=== PATIENT | male | born 1940 | race Caucasian/White ===

== ENCOUNTER 2019-11-26 14:02 | Inpatient (IN) | payer MEDICARE ==
[2019-11-26] MEDS ORDERED: Albuterol Sulfate 2.5 mg/0.5 ml Neb ONE ×2 (14:22→14:38)
[2019-11-26] MEDS ORDERED: Albuterol Sulfate 2.5 mg/3 ml Neb ONE (14:22)
[2019-11-26 14:30] LABS: #Monocytes 0.6 thou/uL (0.11-0.59); #Neutrophils 13.3 thou/uL (1.40-6.50); %Eosinophils 0.3 % (0.0-10.0); %Neutrophils 88.8 % (42.0-75.0); Hemoglobin 14.6 g/dL (14.0-18.0); Mean Corpuscular HGB CONC 33.1 g/dL (32.0-36.0); Mean Corpuscular Hemoglobin 32.6 pg (27.0-31.0); Mean Corpuscular Volume 98.4 fL (78.0-98.0); Mean Platelet Volume 8.3 fL (7.4-10.4); Platelet Count 327 thou/uL (130-400); RBC Distribution Width 13.8 % (11.5-14.5); Red Blood Cell (RBC) Count 4.49 mill/uL (4.70-6.10); White Blood Cell (WBC) Count 14.9 thou/uL (4.8-10.8)
[2019-11-26] MEDS ORDERED: Magnesium 2 GM/50 ML BAG (IN WATER) ONE (14:31)
[2019-11-26] MEDS ORDERED: Azithromycin 500 MG VIAL ONE ×2 (14:31→15:24)
[2019-11-26] MEDS ORDERED: cefTRIAXone\\ROCEPHIN 2 GM VIAL ONE (14:31)
[2019-11-26] MEDS ORDERED: methylPREDNISolone Sod Succ/PF 125 MG/2 ML VIAL ONE (14:31)
[2019-11-26 14:34] LABS: Actual Bicarbonate (HCO3a) 25.5 mEq/L (22-28); Analyzer IN Cardio ER; Base Excess (BEa) 1.3 mEq/L (-2.0 to +3.0); CO2 Tension 39.1 mmHg (35.0-45.0); Carboxyhemoglobin (COHb) 0.2 gm% (0.0-3.0); Potassium - ABG Lab 3.58 mmol/L (3.70-5.30); pH, Arterial 7.43 (7.35-7.45)
[2019-11-26 14:42] LABS: ALV-art Gradient 178.025 (0-20); O2 Tension (PaO2) 58.3 mmHg (> 60.0); Puncture Site RRA
[2019-11-26 14:48] LABS: ALT (SGPT) 21 U/L (8-55); AST (SGOT) 19 U/L (5-34); Albumin 3.7 g/dL (3.4-4.8); Alkaline Phosphatase 87 U/L (40-110); Anion Gap 13 mmol/L (10-20); BUN (Urea Nitrogen) 21 mg/dL (8.4-25.7); Bilirubin, Total 0.5 mg/dL (0.2-1.2); Calc. Creatinine Clearance 0 mL/min (70-130); Carbon Dioxide 29 mmol/L (23-31); Chloride 98 mmol/L (98-107); Estimated GFR-MDRD 69; Globulin 3.4 g/dL (2.4-3.5); Glucose 167 mg/dL (83-110); Potassium 3.8 mmol/L (3.5-5.1); Protein, Total 7.1 g/dL (5.8-8.1); Sodium 136 mmol/L (136-145)
--- NOTE | 2019-11-26 15:06 | RAD ---
XR Chest 1 View Portable HISTORY: Shortness of breath COMPARISON: None FINDINGS: The heart size is normal. The aorta is tortuous. The lungs are well expanded without focal areas of consolidation, pneumothorax or pleural effusions. IMPRESSION: No radiographic evidence of acute cardiopulmonary process.
[2019-11-26 18:01] LABS: Lactic Acid 1.8 mmol/L (0.5-2.2)
[2019-11-26 18:17] LABS: Troponin I 0.013 ng/mL (< 0.028)
[2019-11-26] MEDS ORDERED: Ondansetron PF 4 MG/2 ML Vial IVP PRN ×2 (18:48→22:30)
[2019-11-26] MEDS ORDERED: Ondansetron ODT 4 MG TAB SL PRN (18:48)
[2019-11-26] MEDS ORDERED: Acetaminophen 325 MG TAB PO PRN ×2 (18:48→22:30)
[2019-11-26 21:11] LABS: Troponin I 0.015 ng/mL (< 0.028)
[2019-11-26 21:40] VITALS: BMI 22.4
[2019-11-26] MEDS ORDERED: Senokot S 8.6-50 MG TAB PO PRN (22:30)
[2019-11-26] MEDS ORDERED: Calcium Carbonate 500 MG ChewTAB PO PRN (22:30)
[2019-11-26] MEDS ORDERED: Ondansetron ODT 4 MG TAB PO PRN (22:30)
[2019-11-26] MEDS ORDERED: Diabetic Tussin 200 MG/10 ML UDCUP PO PRN (22:32)
[2019-11-26] MEDS ORDERED: Cepastat Lozenges 1 LOZ PO PRN (22:32)
[2019-11-26] MEDS ORDERED: hydrALAZINE 20 MG/ML VIAL SLOW IVP PRN (22:32)
--- NOTE | 2019-11-26 23:09 | HP ---
PRIMARY CARE PHYSICIAN: Dr. Ariza. CHIEF COMPLAINT: Shortness of breath. HISTORY OF PRESENT ILLNESS: The patient is an 79-year-old male with COPD, was brought into the emergency room with above complaints. Over the last 1 to 2 weeks, the patient has progressive worsening shortness of breath along with chest tightness and wheezing. He had cough that was productive of thick whitish phlegm. He was short of breath on minimal exertion. No fever, chills were reported. No orthopnea, paroxysmal nocturnal dyspnea, chest pain, palpitations, syncope, or lower extremity edema reported. Last week, he was evaluated by his primary care physician and was started on Levaquin along with prednisone with some improvement. His shortness of breath got worse over the last 24 hours, for which he was brought into the emergency room. His O2 saturation in the emergency room was 70%. His cough is more or less dry over the last few days. The patient was placed on noninvasive positive-pressure ventilation in the emergency room due to persistent hypoxemia. The patient is a poor historian. There is no family at the bedside. PAST MEDICAL HISTORY: 1. COPD. 2. Dementia. 3. Hypertension. 4. Hyperlipidemia. 5. Hard of hearing. 6. Hypothyroidism. PAST SURGICAL HISTORY: The patient denies any surgery. ALLERGIES: THE PATIENT IS ALLERGIC TO PLAVIX. CURRENT HOME MEDICATIONS: 1. Aspirin 81 mg daily. 2. Lipitor 40 mg daily. 3. Nebulizer treatment b.i.d. 4. Levothyroxine 25 mcg daily. 5. Lisinopril 20 mg at bedtime. SOCIAL HISTORY: The patient currently lives at home. He is a former smoker. No alcohol or drug use. His daughter is the primary decision maker. Code status to be verified with the DPOA in a.m. FAMILY HISTORY: Negative for heart disease. REVIEW OF SYSTEMS: All other review of systems were reviewed and were found negative. PHYSICAL EXAMINATION: VITAL SIGNS: Temperature 98.8, pulse rate of 113, blood pressure of 113/61 with O2 saturation 66% on room air. GENERAL: An 79-year-old male, in mild respiratory distress, able to complete short phrases. HEENT: Head, atraumatic and normocephalic. Sclerae anicteric. Dry mucous membranes. No oral lesion. NECK: Supple. No JVD appreciated. No carotid bruit. LUNGS: Showed diffuse expiratory wheezing with some accessory muscle use. There was scattered rhonchi with few rales at bases. HEART: S1, S2 present. Regular rate and rhythm. No rubs or gallops. He was tachycardic earlier. ABDOMEN: Soft, nontender. Bowel sounds present. No rebound or guarding. No costovertebral angle tenderness. EXTREMITIES: No edema or calf tenderness. NEUROLOGIC: Grossly nonfocal. Moves all 4 extremities. PSYCHIATRIC: The patient is alert and awake, poor historian. MUSCULOSKELETAL: No joint swelling tenderness. PERIPHERAL VASCULAR: Radial pulses were palpable bilaterally and equal. LABORATORY FINDINGS: CBC showed WBC 14.9 with hemoglobin 14.6, hematocrit 44.2, platelet of 327. MCV of 98.4, MCH of 32.6. ABGs showed pH of 7.43, pCO2 of 39.1, PO2 of 58.3 with bicarbonate of 25.5 on noninvasive positive-pressure ventilation. Chemistry showed sodium 136, potassium 3.8, chloride 98, bicarb 29, BUN 21, creatinine 1.03, glucose of 167. Lactic acid was normal. LFTs in normal range. Influenza testing was negative. IMAGING STUDIES: Chest x-ray by my review showed increased bronchopulmonary marking without definite infiltrate. Telemetry monitoring by my review showed sinus rhythm. IMPRESSION: 1. Acute hypoxic respiratory failure secondary to chronic obstructive pulmonary disease exacerbation. 2. Systemic inflammatory response syndrome secondary to #1. 3. Hypertension. 4. Hyperlipidemia. 5. Dementia. 6. Hard of hearing. 7. Chronic kidney disease, stage 2. 8. Macrocytosis. 9. Former smoker. 10. Hypothyroidism. PLAN: The patient will be monitored in the intermediate care unit due to noninvasive positive-pressure ventilation. We will continue O2 supplementation along with IV steroids. Empiric antibiotics. Home medications will be resumed. Continuous pulse oximetry. We will resume selected home medications. We will start vitamin B12, folic acid supplementation due to macrocytosis. Physical Therapy evaluation. Consult Pulmonary, Dr. Walden. The patient understands the plan of care. We will discuss the plan of care with the family when they arrive. The patient will require 2 to 3 days for stabilization. Job ID: [id number]
[2019-11-26] MEDS: methylPREDNISolone Sod Succ/PF 125 MG/2 ML VIAL IVP SCH (23:16)
[2019-11-26] MEDS: Cefepime 1 GM in Sodium Chloride 0.9% 100 ML IVPB SCH (23:16)
[2019-11-27 03:53] LABS: #Lymphocytes 0.9 thou/uL (1.20-3.40); #Monocytes 0.4 thou/uL (0.11-0.59); %Eosinophils 0.4 % (0.0-10.0); %Monocytes 3.5 % (0.0-10.0); %Neutrophils 87.1 % (42.0-75.0); Hemoglobin 13.2 g/dL (14.0-18.0); Mean Corpuscular Hemoglobin 32.9 pg (27.0-31.0); Mean Corpuscular Volume 99.5 fL (78.0-98.0); Mean Platelet Volume 8.2 fL (7.4-10.4); Platelet Count 266 thou/uL (130-400); RBC Distribution Width 13.8 % (11.5-14.5); Red Blood Cell (RBC) Count 4.01 mill/uL (4.70-6.10); White Blood Cell (WBC) Count 10.3 thou/uL (4.8-10.8)
[2019-11-27 04:14] LABS: ALT (SGPT) 16 U/L (8-55); AST (SGOT) 15 U/L (5-34); Albumin 3.1 g/dL (3.4-4.8); Alkaline Phosphatase 68 U/L (40-110); Anion Gap 12 mmol/L (10-20); BUN (Urea Nitrogen) 27 mg/dL (8.4-25.7); Bilirubin, Total 0.3 mg/dL (0.2-1.2); Calc. Creatinine Clearance 65 mL/min (70-130); Calcium 8.1 mg/dL (7.8-10.44); Carbon Dioxide 24 mmol/L (23-31); Chloride 104 mmol/L (98-107); Estimated GFR-MDRD 83; Globulin 2.8 g/dL (2.4-3.5); Glucose 160 mg/dL (83-110); Magnesium 2.3 mg/dL (1.6-2.6); Potassium 3.9 mmol/L (3.5-5.1); Protein, Total 5.9 g/dL (5.8-8.1); Sodium 136 mmol/L (136-145)
[2019-11-27] MEDS: Levothyroxine Sodium 25 MCG TAB PO SCH (05:22)
[2019-11-27] MEDS: methylPREDNISolone Sod Succ/PF 125 MG/2 ML VIAL IVP SCH (05:22)
[2019-11-27] MEDS: Docusate 100 MG CAP PO SCH ×2 (08:42→21:33)
[2019-11-27] MEDS: Aspirin Chewable 81 MG TAB PO SCH (08:42)
[2019-11-27] MEDS: Atorvastatin Calcium 40 MG TAB PO SCH (08:42)
[2019-11-27] MEDS: Doxycycline 100 MG CAP PO SCH ×2 (08:42→21:10)
[2019-11-27] MEDS: Folic Acid 1 MG TAB PO SCH (08:43)
[2019-11-27] MEDS: Heparin 5,000 UNITS/ML VIAL SC SCH ×2 (08:43→21:14)
[2019-11-27] MEDS: Multivit, Therapeutic 1 TAB PO SCH (08:43)
[2019-11-27] MEDS: Amlodipine 5 MG TAB PO SCH (08:43)
[2019-11-27] MEDS: Lisinopril 5 MG TAB PO SCH ×2 (08:43→21:10)
[2019-11-27] MEDS: Famotidine 20 MG TAB PO SCH ×2 (08:43→21:10)
[2019-11-27] MEDS: Cyanocobalamin (Vitamin B-12) 1,000 MCG TAB PO SCH (08:43)
[2019-11-27] MEDS: guaiFENesin ER 600 MG TAB PO SCH ×2 (08:43→21:10)
[2019-11-27] MEDS ORDERED: Bacteriostatic Water 30 ML VIAL FS PRN (08:56)
[2019-11-27] MEDS ORDERED: FLU VACC TS2019-20(65YR UP)/PF 180 MCG/0.5 ML SYRINGE IM ONE (09:00)
[2019-11-27] MEDS ORDERED: Prevnar 13-Val Conj/PF 0.5 ML SYRINGE IM ONE (09:00)
--- NOTE | 2019-11-27 10:49 | CON ---
DATE OF CONSULTATION: 11/27/2019 SUBJECTIVE: Garrick Johnson is a pleasant 79-year-old man. He presents with apparent reported shortness of breath. He thinks he is in [facility] and thinks he is being discharged today. Interestingly enough, he says, he remembers seeing me years ago and discussing when I went to the [facility] and help take care of He has no complaints and says he feels normal. PAST MEDICAL HISTORY: Remarkable for COPD, dementia, hypertension, lipid disorder, and hypothyroidism. He reports Plavix intolerance. Prior to admission, he is on aspirin, Lipitor, nebulizer treatments twice a day, Synthroid, lisinopril. He is not in a care environment, still lives in a home cared for by the daughter. FAMILY HISTORY: Negative for lung disease. REVIEW OF SYSTEMS: Otherwise, not reliably obtainable. OBJECTIVE: VITAL SIGNS: Blood pressure 136/80, heart rate is 108, respiratory rate is 22, oximetry is 91% on 3 L nasal cannula. HEENT: Pupils are equal. Sclerae are anicteric. NECK: Supple. No lymphadenopathy. LUNGS: Remarkable for distant wheezes. HEART: Regular rhythm, S1, S2 are normal. ABDOMEN: Soft and nontender. EXTREMITIES: Without clubbing, cyanosis, or edema. NEURO: Grossly nonfocal. LABORATORY DATA: White count 10.3, hemoglobin 13.2, platelets 266. Electrolytes are normal. BUN 27, creatinine 0.88, down from 1.03 yesterday. Blood gas 7.43 , CO2 of 39, PO2 of 58. Chest x-ray shows hyperinflated lungs and no infiltrates. IMPRESSION: Chronic obstructive pulmonary disease exacerbation. He probably should be in the hospital 2-3 days before he is considered for discharge since he is not reliable from a symptom standpoint. His antibiotics can be simplified to p.o. antimicrobial therapy. I would continue with his nebulizer treatments, steroid dosing can be decreased. We will follow. This is a 70 min consult with greater than 50% of time spent on coordination of care. Job ID: [id number] MTDD
[2019-11-27] MEDS: Cefepime 1 GM in Sodium Chloride 0.9% 100 ML IVPB SCH (11:37)
[2019-11-27] MEDS: methylPREDNISolone Sod Succ 40 MG VIAL IVP SCH ×2 (11:37→19:04)
--- NOTE | 2019-11-27 15:17 | PDOC.HOSPP ---
- Subjective Encounter Date: 11/27/19 Encounter Time: 15:16 Subjective: Patient in bed, reports no chest pain or shortness of breath, no distress, on 4- 5L O2 by NC and family at bedside states he does not use this at home. - Objective Vital Signs & Weight: Vital Signs (12 hours) Temp Pulse Pulse Pulse Pulse Pulse Pulse 11/27/19 14:07 102 H 11/27/19 13:35 106 H 111 H 116 H 103 H 106 H 11/27/19 11:33 98.5 F 11/27/19 10:48 11/27/19 10:44 95 11/27/19 08:43 93 11/27/19 07:42 93 11/27/19 07:28 97.8 F 11/27/19 03:34 98.1 F Resp BP BP Pulse Ox Pulse Ox Pulse Ox Pulse Ox 11/27/19 14:07 18 87 L 11/27/19 13:35 145/90 H 106/73 87 L 83 L 89 L 11/27/19 11:33 11/27/19 10:48 95 11/27/19 10:44 17 95 11/27/19 08:43 11/27/19 07:42 18 91 L 11/27/19 07:28 11/27/19 03:34 Pulse Ox Pulse Ox 11/27/19 14:07 11/27/19 13:35 90 L 86 L 11/27/19 11:33 11/27/19 10:48 11/27/19 10:44 11/27/19 08:43 11/27/19 07:42 11/27/19 07:28 11/27/19 03:34 Weight Weight 152 lb 3.2 oz Most Recent Monitor Data Heart Rate from ECG 110 NIBP 106/73 NIBP BP-Mean 84 Respiration from ECG 32 SpO2 86 I&O: 11/26/19 11/27/19 11/28/19 06:59 06:59 06:59 Intake Total 390 Output Total 175 Balance 215 Result Diagrams: 11/27/19 03:06 11/27/19 03:06 Hospitalist ROS - Medication Medications: Active Medications Generic Name Dose Route Start Last Admin Trade Name Freq PRN Reason Stop Dose Admin Albuterol/Ipratropium 3 ml 11/26/19 22:30 11/27/19 14:07 Duoneb NEB 3 ml [id number] JUSTYN Administration Amlodipine Besylate 5 mg 11/27/19 09:00 11/27/19 08:43 Norvasc PO 5 mg DAILY JUSTYN Administration Aspirin 81 mg 11/27/19 09:00 11/27/19 08:42 Aspirin Chewable PO 81 mg DAILY JUSTYN Administration Atorvastatin Calcium 40 mg 11/27/19 09:00 11/27/19 08:42 Lipitor PO 40 mg DAILY JUSTYN Administration Cyanocobalamin 1,000 mcg 11/27/19 09:00 11/27/19 08:43 Vitamin B-12 PO 1,000 mcg DAILY JUSTYN Administration Docusate Sodium 100 mg 11/27/19 09:00 11/27/19 08:42 Colace PO 100 mg BID JUSTYN Administration Doxycycline Hyclate 100 mg 11/27/19 09:00 11/27/19 08:42 Vibramycin PO 100 mg BID JUSTYN Administration Famotidine 20 mg 11/27/19 09:00 11/27/19 08:43 Pepcid PO 20 mg BID JUSTYN Administration Folic Acid 1 mg 11/27/19 09:00 11/27/19 08:43 Folvite PO 1 mg DAILY JUSTYN Administration Guaifenesin 600 mg 11/27/19 09:00 11/27/19 08:43 Mucinex PO 600 mg Q12HR JUSTYN Administration Heparin Sodium (Porcine) 5,000 units 11/27/19 09:00 11/27/19 08:43 Heparin SC 5,000 units BID JUSTYN Administration Cefepime HCl 1 gm/ Sodium 100 mls @ 200 mls/hr 11/26/19 23:00 11/27/19 11:37 Chloride IVPB 100 mls 1100,2300 JUSTYN Administration Levothyroxine Sodium 25 mcg 11/27/19 06:00 11/27/19 05:22 Synthroid PO 25 mcg 0600 JUSTYN Administration Lisinopril 5 mg 11/27/19 09:00 11/27/19 08:43 Zestril PO 5 mg BID JUSTYN Administration Methylprednisolone Sodium Succinate 20 mg 11/27/19 08:32 11/27/19 11:37 Solu-Medrol IVP 20 mg Q6HR JUSTYN Administration Multivitamins 1 tab 11/27/19 09:00 11/27/19 08:43 Theragran PO 1 tab DAILY JUSTYN Administration Sodium Chloride 10 ml 11/26/19 21:00 03/10/20 08:44 Flush - Normal Saline IVF 10 ml Q12HR JUSTYN Administration - Exam General Appearance: NAD, awake alert Eye: PERRL, anicteric sclera ENT: normocephalic atraumatic, no oropharyngeal lesions, moist mucosa Neck: supple, symmetric, no JVD, no thyromegaly, no lymphadenopathy, no carotid bruit Heart: RRR, no murmur, no gallops, no rubs, normal peripheral pulses Respiratory: CTAB Gastrointestinal: soft, non-tender, non-distended, normal bowel sounds, no palpable masses, no hepatomegaly, no splenomegaly, no bruit Extremities: no cyanosis, no clubbing, no edema Skin: normal turgor, no lesions, no rashes Neurological: cranial nerve grossly intact, normal sensation to touch, no weakness, no focal deficits, no new deficit Musculoskeletal: normal tone, normal strength, no muscle wasting Psychiatric: normal affect, normal behavior, A&O x 3 Hosp A/P (1) Acute respiratory failure with hypoxia Code(s): J96.01 - ACUTE RESPIRATORY FAILURE WITH HYPOXIA Status: Acute (2) COPD (chronic obstructive pulmonary disease) Status: Acute (3) HTN (hypertension) Code(s): I10 - ESSENTIAL (PRIMARY) HYPERTENSION Status: Acute (4) HLD (hyperlipidemia) Code(s): E78.5 - HYPERLIPIDEMIA, UNSPECIFIED Status: Acute (5) CKD (chronic kidney disease) stage 2, GFR 60-89 ml/min Code(s): N18.2 - CHRONIC KIDNEY DISEASE, STAGE 2 (MILD) Status: Acute - Plan no longer requiring BIPAP, downgrade to floor, continue O2 supplementation and continue to wean, continue empiric antibiotics, appreciate pulmonology assistance, PT evaluation ordered, once o2 weaned can possibly D/c with appropriate home therapy, or perhaps may need home o2 too early to tell. will monitor closely
[2019-11-28] MEDS: Cefepime 1 GM in Sodium Chloride 0.9% 100 ML IVPB SCH ×2 (00:20→10:27)
[2019-11-28] MEDS: methylPREDNISolone Sod Succ 40 MG VIAL IVP SCH ×4 (00:20→17:30)
[2019-11-28 05:06] LABS: ALT (SGPT) 19 U/L (8-55); AST (SGOT) 16 U/L (5-34); Albumin 3.1 g/dL (3.4-4.8); Alkaline Phosphatase 67 U/L (40-110); Anion Gap 13 mmol/L (10-20); BUN (Urea Nitrogen) 30 mg/dL (8.4-25.7); Bilirubin, Total 0.3 mg/dL (0.2-1.2); Calc. Creatinine Clearance 64 mL/min (70-130); Calcium 8.2 mg/dL (7.8-10.44); Carbon Dioxide 23 mmol/L (23-31); Chloride 103 mmol/L (98-107); Estimated GFR-MDRD 82; Globulin 2.8 g/dL (2.4-3.5); Glucose 186 mg/dL (83-110); Potassium 3.7 mmol/L (3.5-5.1); Protein, Total 5.9 g/dL (5.8-8.1); Sodium 135 mmol/L (136-145)
[2019-11-28 05:39] LABS: Band 2 % (5-11); Hemoglobin 12.9 g/dL (14.0-18.0); Hypochromia SLIGHT = 6-15 cells (100X) (0-5/hpf); Lymphocytes 6 % (21-51); MDiff Complete? YES; Mean Corpuscular HGB CONC 33.5 g/dL (32.0-36.0); Mean Corpuscular Hemoglobin 33.2 pg (27.0-31.0); Mean Platelet Volume 8.2 fL (7.4-10.4); Neutrophil 92 % (42-75); Platelet Count 309 thou/uL (130-400); Platelet Morphology Comment Appears Adequate; RBC Distribution Width 13.7 % (11.5-14.5); Red Blood Cell (RBC) Count 3.89 mill/uL (4.70-6.10); White Blood Cell (WBC) Count 15.7 thou/uL (4.8-10.8)
[2019-11-28] MEDS: Levothyroxine Sodium 25 MCG TAB PO SCH (06:37)
[2019-11-28] MEDS: Amlodipine 5 MG TAB PO SCH (10:24)
[2019-11-28] MEDS: Atorvastatin Calcium 40 MG TAB PO SCH (10:25)
[2019-11-28] MEDS: Lisinopril 5 MG TAB PO SCH ×2 (10:25→21:20)
[2019-11-28] MEDS: Docusate 100 MG CAP PO SCH ×2 (10:25→21:22)
[2019-11-28] MEDS: Multivit, Therapeutic 1 TAB PO SCH (10:25)
[2019-11-28] MEDS: Aspirin Chewable 81 MG TAB PO SCH (10:25)
[2019-11-28] MEDS: Doxycycline 100 MG CAP PO SCH ×2 (10:25→21:20)
[2019-11-28] MEDS: Heparin 5,000 UNITS/ML VIAL SC SCH ×2 (10:26→21:21)
[2019-11-28] MEDS: Cyanocobalamin (Vitamin B-12) 1,000 MCG TAB PO SCH (10:26)
[2019-11-28] MEDS: guaiFENesin ER 600 MG TAB PO SCH ×2 (10:26→21:21)
[2019-11-28] MEDS: Famotidine 20 MG TAB PO SCH ×2 (10:26→21:22)
[2019-11-28] MEDS: Folic Acid 1 MG TAB PO SCH (10:26)
--- NOTE | 2019-11-28 11:57 | PQF ---
CLINICAL DOCUMENTATION IMPROVEMENT CLARIFICATION FORM: ICD-10 Updated PLEASE DO AN ADDENDUM TO THE PROGRESS NOTE WITH ANY DOCUMENTATION UPDATES OR ADDITIONS AND CARRY THROUGH TO DC SUMMARY. THANK YOU. DATE: 11/28/19 ATTN: DR. NOVOA Please exercise your independent, professional judgment in responding to the clarification form. Clinical indicators are provided on the bottom of this form for your review Please check appropriate box(es): [ ] Sepsis due to: (Pna, UTI, gangrenous gall bladder, etc.) [ ] SIRS due to non-infectious process (please specify etiology) [ ] Severe sepsis with acute organ dysfunction of: (Examples: respiratory failure, encephalopathy, acute kidney failure, other) [ ] Localized infection without sepsis [ x ] Other diagnosis ____COPD exacerbation [ ] Unable to determine In addition, please specify: Present on Admission (POA): [ x] Yes [ ] No [ ] Unable to determine For continuity of documentation, please document condition throughout progress notes and discharge summary. Thank You. 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 All Rights Reserved JESSY [email or web address] Office: [phone] ANA
--- NOTE | 2019-11-28 16:27 | PRG ---
DATE OF SERVICE: 11/28/2019 SUBJECTIVE: Little says he is feeling little better, but he always says he feels better. OBJECTIVE: VITAL SIGNS: He is afebrile, heart rate is 100, respiratory rate is 20, oximetry is 94% on 2 L, blood pressure 135/70. LUNGS: Remarkable for faint wheezes. HEART: Regular rhythm. ABDOMEN: Soft. EXTREMITIES: Without edema. LABORATORY DATA: White count 15.7, hemoglobin 12.9, platelets 309,000. Sodium 135, potassium 3.7, chloride 103, bicarb 23, BUN 30, and creatinine 0.89. IMPRESSION: Chronic obstructive pulmonary disease exacerbation with bronchitis, slowly improving. He may be a candidate to be discharged by Tuesday morning in my opinion. I met with the family and answered all their questions. There is no reason to continue with IV antimicrobial therapy in my opinion. We will continue to follow. Job ID: [id number]
--- NOTE | 2019-11-28 19:18 | PDOC.HOSPP ---
- Subjective Encounter Date: 11/28/19 Encounter Time: 16:00 Subjective: Pt seen for followup re: COPD exacerbation. States he feels better. - Objective Vital Signs & Weight: Vital Signs (12 hours) Temp Pulse Resp BP Pulse Ox 11/28/19 18:52 92 L 11/28/19 18:51 92 L 11/28/19 15:19 97.6 F 102 H 16 135/70 94 L 11/28/19 14:11 101 H 20 91 L 11/28/19 12:03 97.4 F L 102 H 16 151/101 H 95 11/28/19 10:39 101 H 20 94 L 11/28/19 10:25 105 H 11/28/19 07:55 98.2 F 105 H 20 139/76 95 Weight Weight 151 lb 12.8 oz Most Recent Monitor Data Heart Rate from ECG 110 NIBP 129/66 NIBP BP-Mean 87 Respiration from ECG 32 SpO2 92 I&O: 11/27/19 11/28/19 11/29/19 06:59 06:59 06:59 Intake Total 390 480 Output Total 175 425 Balance 215 55 Result Diagrams: 11/28/19 04:18 11/28/19 04:18 Additional Labs: Labs and MARs reviewed by me EKG Reviewed by me: Yes (Tele: NSR) Hospitalist ROS - Review of Systems Respiratory: reports: SOB with excertion Cardiovascular: denies: chest pain, palpitations, orthopnea, paroxysmal noc. dyspnea, edema, light headedness Gastrointestinal: denies: nausea, vomiting, abdominal pain, diarrhea, constipation, melena, hematochezia Skin: denies: rash, lesions, gold, bruising - Medication Medications: Active Medications Generic Name Dose Route Start Last Admin Trade Name Freq PRN Reason Stop Dose Admin Acetaminophen 650 mg 11/26/19 22:30 11/27/19 21:15 Tylenol PO 650 mg Q4H PRN Administration Headache/Fever/Mild Pain (1-3) Albuterol/Ipratropium 3 ml 11/26/19 22:30 11/28/19 18:51 Duoneb NEB 3 ml [id number] JUSTYN Administration Amlodipine Besylate 5 mg 11/27/19 09:00 11/28/19 10:24 Norvasc PO 5 mg DAILY JUSTYN Administration Aspirin 81 mg 11/27/19 09:00 11/28/19 10:25 Aspirin Chewable PO 81 mg DAILY JUSTYN Administration Atorvastatin Calcium 40 mg 11/27/19 09:00 11/28/19 10:25 Lipitor PO 40 mg DAILY JUSTYN Administration Cyanocobalamin 1,000 mcg 11/27/19 09:00 11/28/19 10:26 Vitamin B-12 PO 1,000 mcg DAILY JUSTYN Administration Docusate Sodium 100 mg 11/27/19 09:00 11/28/19 10:25 Colace PO 100 mg BID JUSTYN Administration Doxycycline Hyclate 100 mg 11/27/19 09:00 11/28/19 10:25 Vibramycin PO 100 mg BID JUSTYN Administration Famotidine 20 mg 11/27/19 09:00 11/28/19 10:26 Pepcid PO 20 mg BID JUSTYN Administration Folic Acid 1 mg 11/27/19 09:00 11/28/19 10:26 Folvite PO 1 mg DAILY JUSTYN Administration Guaifenesin 600 mg 11/27/19 09:00 11/28/19 10:26 Mucinex PO 600 mg Q12HR JUSTYN Administration Heparin Sodium (Porcine) 5,000 units 11/27/19 09:00 11/28/19 10:26 Heparin SC 5,000 units BID JUSTYN Administration Levothyroxine Sodium 25 mcg 11/27/19 06:00 11/28/19 06:37 Synthroid PO 25 mcg 0600 JUSTYN Administration Lisinopril 5 mg 11/27/19 09:00 11/28/19 10:25 Zestril PO 5 mg BID JUSTYN Administration Methylprednisolone Sodium Succinate 20 mg 11/27/19 08:32 11/28/19 17:30 Solu-Medrol IVP 20 mg Q6HR JUSTYN Administration Multivitamins 1 tab 11/27/19 09:00 11/28/19 10:25 Theragran PO 1 tab DAILY JUSTYN Administration Sodium Chloride 10 ml 11/26/19 21:00 11/28/19 10:26 Flush - Normal Saline IVF 10 ml Q12HR JUSTYN Administration - Exam General Appearance: awake alert Eye: PERRL ENT: normocephalic atraumatic Neck: supple Heart: RRR, no rubs Respiratory: wheezes Gastrointestinal: soft, non-tender Extremities: no cyanosis Psychiatric: normal affect, normal behavior Hosp A/P - Plan - Assessment (1) COPD (chronic obstructive pulmonary disease) exacerbation Status: Acute (2) Acute respiratory failure with hypoxia Code(s): J96.01 - ACUTE RESPIRATORY FAILURE WITH HYPOXIA Status: Acute (3) HTN (hypertension) Code(s): I10 - ESSENTIAL (PRIMARY) HYPERTENSION Status: Chronic (4) CKD (chronic kidney disease) stage 2, GFR 60-89 ml/min Code(s): N18.2 - CHRONIC KIDNEY DISEASE, STAGE 2 (MILD) Status: Chronic (5) HLD (hyperlipidemia) Code(s): E78.5 - HYPERLIPIDEMIA, UNSPECIFIED Status: Chronic - Plan Pt is on supplemental oxygen, does not use oxygen at home. Concerns re: cognitive status. Pt keeps wanting to go home. May need Inpt Rehab, await OT reassessment to see if things change. Switched to cefdinir, cefepime discontinued.
[2019-11-28] MEDS: Cefdinir 300 MG CAP PO SCH (21:21)
[2019-11-29] MEDS: methylPREDNISolone Sod Succ 40 MG VIAL IVP SCH ×2 (00:09→06:12)
[2019-11-29] MEDS: Levothyroxine Sodium 25 MCG TAB PO SCH (06:11)
[2019-11-29] MEDS: Doxycycline 100 MG CAP PO SCH ×2 (09:08→20:30)
[2019-11-29] MEDS: Lisinopril 5 MG TAB PO SCH ×2 (09:08→20:28)
[2019-11-29] MEDS: Aspirin Chewable 81 MG TAB PO SCH (09:08)
[2019-11-29] MEDS: Cefdinir 300 MG CAP PO SCH ×2 (09:08→20:28)
[2019-11-29] MEDS: Cyanocobalamin (Vitamin B-12) 1,000 MCG TAB PO SCH (09:09)
[2019-11-29] MEDS: guaiFENesin ER 600 MG TAB PO SCH ×2 (09:09→20:28)
[2019-11-29] MEDS: Docusate 100 MG CAP PO SCH ×2 (09:09→20:30)
[2019-11-29] MEDS: Multivit, Therapeutic 1 TAB PO SCH (09:10)
[2019-11-29] MEDS: Folic Acid 1 MG TAB PO SCH (09:10)
[2019-11-29] MEDS: Atorvastatin Calcium 40 MG TAB PO SCH (09:11)
[2019-11-29] MEDS: Famotidine 20 MG TAB PO SCH ×2 (09:11→20:28)
[2019-11-29] MEDS: Amlodipine 5 MG TAB PO SCH (09:12)
[2019-11-29] MEDS: Heparin 5,000 UNITS/ML VIAL SC SCH ×2 (09:13→20:29)
--- NOTE | 2019-11-29 11:26 | PRG ---
DATE OF SERVICE: 11/29/2019 OBJECTIVE: VITAL SIGNS: Mr. Johnson is afebrile. Heart rate is in 80s. Respiratory rates in the teens. Oximetry is 92, reportedly on room air at 10:00 this morning. Blood pressure is 142/83. LUNGS: Remarkable for distant wheezes. HEART: Regular rhythm. ABDOMEN: Soft. IMPRESSION: Chronic obstructive pulmonary disease exacerbation, slowly improving. We need to arrange for nebulizer medication that he can use twice a day predictably. His metered-dose inhaler technique is poor. We will put him on Brovana and budesonide twice a day at discharge, I will write a prescription for this. Hopefully, we can send him home in the morning. Job ID: [id number]
--- NOTE | 2019-11-29 22:06 | PDOC.HOSPP ---
- Subjective Encounter Date: 11/29/19 Subjective: Doing well. Has been off oxygen today and doing well. Denies SOB. - Objective Vital Signs & Weight: Vital Signs (12 hours) Temp Pulse Pulse Resp BP BP BP 11/29/19 20:27 97.9 F 98 20 127/80 11/29/19 19:39 11/29/19 15:39 97.4 F L 97 20 129/71 11/29/19 14:59 96 16 11/29/19 14:21 99 125/60 138/64 11/29/19 11:59 97.6 F 99 20 135/69 11/29/19 11:14 97 16 Pulse Ox Pulse Ox Pulse Ox 11/29/19 20:27 94 L 11/29/19 19:39 89 L 11/29/19 15:39 94 L 11/29/19 14:59 88 L 11/29/19 14:21 93 L 95 11/29/19 11:59 93 L 11/29/19 11:14 88 L Weight Weight 150 lb 1.6 oz Most Recent Monitor Data Heart Rate from ECG 110 NIBP 129/66 NIBP BP-Mean 87 Respiration from ECG 32 SpO2 92 I&O: 11/28/19 11/29/19 11/30/19 06:59 06:59 06:59 Intake Total 480 840 750 Output Total 425 200 550 Balance 55 640 200 Result Diagrams: 11/28/19 04:18 11/28/19 04:18 Hospitalist ROS - Medication Medications: Active Medications Generic Name Dose Route Start Last Admin Trade Name Freq PRN Reason Stop Dose Admin Acetaminophen 650 mg 11/26/19 22:30 11/27/19 21:15 Tylenol PO 650 mg Q4H PRN Administration Headache/Fever/Mild Pain (1-3) Albuterol/Ipratropium 3 ml 11/26/19 22:30 11/29/19 19:39 Duoneb NEB 3 ml [id number] JUSTYN Administration Amlodipine Besylate 5 mg 11/27/19 09:00 11/29/19 09:12 Norvasc PO 5 mg DAILY JUSTYN Administration Aspirin 81 mg 11/27/19 09:00 11/29/19 09:08 Aspirin Chewable PO 81 mg DAILY JUSTYN Administration Atorvastatin Calcium 40 mg 11/27/19 09:00 11/29/19 09:11 Lipitor PO 40 mg DAILY JUSTYN Administration Cefdinir 300 mg 11/28/19 21:00 11/29/19 20:28 Omnicef PO 300 mg BID JUSTYN Administration Cyanocobalamin 1,000 mcg 11/27/19 09:00 11/29/19 09:09 Vitamin B-12 PO 1,000 mcg DAILY JUSTYN Administration Docusate Sodium 100 mg 11/27/19 09:00 11/29/19 20:30 Colace PO Not Given BID [facility] Doxycycline Hyclate 100 mg 11/27/19 09:00 11/29/19 20:30 Vibramycin PO 100 mg BID JUSTYN Administration Famotidine 20 mg 11/27/19 09:00 11/29/19 20:28 Pepcid PO 20 mg BID [facility] Administration Folic Acid 1 mg 11/27/19 09:00 11/29/19 09:10 Folvite PO 1 mg DAILY JUSTYN Administration Guaifenesin 600 mg 11/27/19 09:00 11/29/19 20:28 Mucinex PO 600 mg Q12HR [facility] Administration Heparin Sodium (Porcine) 5,000 units 11/27/19 09:00 11/29/19 20:29 Heparin SC 5,000 units BID JUSTYN Administration Levothyroxine Sodium 25 mcg 11/27/19 06:00 11/29/19 06:11 Synthroid PO 25 mcg 0600 [facility] Administration Lisinopril 5 mg 11/27/19 09:00 11/29/19 20:28 Zestril PO 5 mg BID JUSTYN Administration Multivitamins 1 tab 11/27/19 09:00 11/29/19 09:10 Theragran PO 1 tab DAILY [facility] Administration Sodium Chloride 10 ml 11/26/19 21:00 11/29/19 20:29 Flush - Normal Saline IVF 10 ml Q12HR JUSTYN Administration - Exam General Appearance: NAD, awake alert Heart: RRR, no murmur, no gallops, no rubs, normal peripheral pulses Respiratory: CTAB, no rales, no ronchi, normal chest expansion, no tachypnea, normal percussion, wheezes (Expiratory on the right) Gastrointestinal: soft, non-tender, non-distended, normal bowel sounds, no palpable masses, no hepatomegaly, no splenomegaly, no bruit Extremities: no cyanosis, no clubbing, no edema Skin: normal turgor Musculoskeletal: normal tone, normal strength, no muscle wasting Psychiatric: normal affect, normal behavior Hosp A/P (1) COPD exacerbation Code(s): J44.1 - CHRONIC OBSTRUCTIVE PULMONARY DISEASE W (ACUTE) EXACERBATION Status: Acute (2) Acute respiratory failure with hypoxia Code(s): J96.01 - ACUTE RESPIRATORY FAILURE WITH HYPOXIA Status: Acute (3) CKD (chronic kidney disease) stage 2, GFR 60-89 ml/min Code(s): N18.2 - CHRONIC KIDNEY DISEASE, STAGE 2 (MILD) Status: Acute (4) HLD (hyperlipidemia) Code(s): E78.5 - HYPERLIPIDEMIA, UNSPECIFIED Status: Acute (5) HTN (hypertension) Code(s): I10 - ESSENTIAL (PRIMARY) HYPERTENSION Status: Acute - Plan Doing very well. Weaned off oxygen. Dr. Walden made some changes with his inhaled meds to improve his dosing technique. Patient consenting to home health. Anticipate DC in am.
[2019-11-30] MEDS ORDERED: predniSONE 20 MG TAB PO SCH (08:00)
[2019-11-30] MEDS: Folic Acid 1 MG TAB PO SCH (09:50)
[2019-11-30] MEDS: Cefdinir 300 MG CAP PO SCH (09:50)
[2019-11-30] MEDS: Aspirin Chewable 81 MG TAB PO SCH (09:50)
[2019-11-30] MEDS: Doxycycline 100 MG CAP PO SCH (09:50)
[2019-11-30] MEDS: Atorvastatin Calcium 40 MG TAB PO SCH (09:50)
[2019-11-30] MEDS: Amlodipine 5 MG TAB PO SCH (09:51)
[2019-11-30] MEDS: Famotidine 20 MG TAB PO SCH (09:51)
[2019-11-30] MEDS: Docusate 100 MG CAP PO SCH (09:51)
[2019-11-30] MEDS: guaiFENesin ER 600 MG TAB PO SCH (09:51)
[2019-11-30] MEDS: Multivit, Therapeutic 1 TAB PO SCH (09:51)
[2019-11-30] MEDS: Lisinopril 5 MG TAB PO SCH (09:51)
[2019-11-30] MEDS: Heparin 5,000 UNITS/ML VIAL SC SCH (09:51)
[2019-11-30] MEDS: Cyanocobalamin (Vitamin B-12) 1,000 MCG TAB PO SCH (09:52)
--- NOTE | 2019-11-30 18:48 | PRG ---
DATE OF SERVICE: 11/30/2019 SUBJECTIVE: Mr. Johnson has no complaints. He is ready to go home. He has his nebulizer solutions waiting for him with pharmacy, Brovana and budesonide. OBJECTIVE: LUNGS: Clear. HEART: Regular rhythm. ABDOMEN: Soft. IMPRESSION: Chronic obstructive pulmonary disease exacerbation, improving. I will see him in followup in 3 to 4 weeks as an outpatient. Job ID: [id number]
[2019-11-30 18:52] VITALS: BP 116/87; TEMP 98.3
--- NOTE | 2019-12-02 04:40 | DIS ---
DATE OF ADMISSION: 11/26/2019 DATE OF DISCHARGE: 11/30/2019 DISCHARGE DIAGNOSES: 1. Acute hypoxic respiratory failure. 2. Chronic obstructive pulmonary disease. 3. Systemic inflammatory response syndrome. 4. Hypertension. 5. Hyperlipidemia. 6. Chronic kidney disease stage 2. 7. Hypothyroidism. 8. History of very mild dementia. HISTORY OF PRESENT ILLNESS: This patient is an 79-year-old male, who has COPD, who presented via the emergency department with shortness of breath with minimal exertion. His workup was consistent with COPD exacerbation without evidence of underlying infection. Chest x-ray was negative. HOSPITAL COURSE: The patient was admitted to the hospital with COPD exacerbation resulting in some acute hypoxic respiratory failure. He was given supplemental oxygen. He was treated with aggressive steroids, nebulizer treatments, and antibiotics which were quickly deescalated to p.o. medications after several days. He was symptomatically improved. He was able to wean off the oxygen. He was seen in consultation by his manager motor, Dr. Walden, who felt the patient likely did not have great technique with his inhaled medications and changed over to nebulized budesonide and Brovana. With that, the patient was felt to be stable for discharge to home. DISCHARGE PHYSICAL EXAMINATION: VITAL SIGNS: On the day of discharge, temperature was 98.3, pulse 100, respirations 20, O2 saturation 93% on room air, and BP 116/87. GENERAL: He was awake and alert, pleasant, cooperative. HEART: Regular rate and rhythm. LUNGS: Diminished, had some mild rales and expiratory wheezes, more on the right than the left. ABDOMEN: Soft, nontender. EXTREMITIES: No cyanosis, clubbing, or edema. DISPOSITION: Patient was discharged to home. He is to have a heart healthy diet. ACTIVITY: As tolerated. MEDICATIONS: Will include; 1. B12 at 1000 mcg p.o. daily. 2. Folic acid 1 mg daily. 3. Lisinopril 5 mg b.i.d. 4. Prednisone 40 mg daily. 5. Brovana 15 mcg nebulized b.i.d. 6. Budesonide 0.5 nebulized daily. 7. DuoNeb p.r.n. 8. Atorvastatin 40 daily. 9. Aspirin 81 mg daily. 10. Levothyroxine 25 mcg daily. 11. Amlodipine 5 mg daily. He is to follow up with Dr. Gabriel Ariza in 7 days. He will have [facility]. He is also encouraged to follow up with Dr. Walden in 10 days. He can return to the hospital at anytime he feels the need to do so. TIME SPENT: Total time in discharge activities is 36 minutes. Job ID: [id number]
== END 2019-11-30 17:55 | disposition home health service (06) | DRG 189 ==
LOC: ERS 14:02 → IMCU/EMU 16:37 → 2NO 11-27 17:40
PROVIDERS: ADMIT Internal Medicine; ATTEND Internal Medicine
PROC: 5A09357 Assistance with Respiratory Ventilation, Less than 24 Consecutive Hours, Continuous Positive Airway Pressure (ICD-10-PCS; principal; 2019-11-26)
DX: J96.01 Acute respiratory failure with hypoxia (principal); J44.1 Chronic obstructive pulmonary disease with (acute) exacerbation; R65.10 Systemic inflammatory response syndrome (SIRS) of non-infectious origin without acute organ dysfunction; I12.9 Hypertensive chronic kidney disease with stage 1 through stage 4 chronic kidney disease, or unspecified chronic kidney disease; E78.5 Hyperlipidemia, unspecified; N18.2 Chronic kidney disease, stage 2 (mild); E03.9 Hypothyroidism, unspecified; F03.90 Unspecified dementia, unspecified severity, without behavioral disturbance, psychotic disturbance, mood disturbance, and anxiety; D75.89 Other specified diseases of blood and blood-forming organs; Z88.8 Allergy status to other drugs, medicaments and biological substances; Z79.82 Long term (current) use of aspirin; Z87.891 Personal history of nicotine dependence
CPT/HCPCS: 36415; 71045; 80053; 82805; 83605; 83735; 84484; 85025; 87040; 87804; 94640; 94644; 94660; 94760; J0456; J0692; J0696; J1644; J2920; J2930; J3475; J3490; J7512; J7611; J7620